=== PATIENT | female | born 1950 | race Caucasian/White ===

== ENCOUNTER 2017-10-28 14:03 | Emergency (ER) | payer OTHER ==
[~2017-10-28] VITALS: Ht 152.4 cm; Wt 86.0 kg
[~2017-10-28 14:03] MED LIST: ALEN1TAB48 PO; CALCCHW9 CHEW; DICL75TA PO; ESCI10TA PO; LISI20TA3 PO; MONT10TA4 PO; OMEP20TA93 PO; SIMV10TA PO; VERA120T3 PO
[2017-10-28 14:05] VITALS: BP 143/63; PULSE 81; RESP 14; TEMP 98.4; O2SAT 96
[2017-10-28] MEDS ORDERED: CALCTAB33 PO (14:18)
[2017-10-28] MEDS ORDERED: RANI300T PO (14:21)
--- NOTE | 2017-10-28 14:33 | PD ---
HPI Chief Complaint: Fall Time Seen by Provider: 14:29 Travel History International Travel<30 days: No Contact w/Intl Traveler<30days: No Traveled to known affect area: No History of Present Illness HPI 67-year-old female patient presents to the ER today because she tripped and fell onto both knees, and is currently complaining of bilateral knee pain, right rib pains, left elbow pain. She denies any head injury or loss of consciousness. She denies any other issues or injuries. She was able to get herself up and walk. Modifying Factors: None Associated Signs & Symptoms: Trip and fall, bilateral knee pain, right rib pains , left elbow pain Risk Factors: Elderly PFSH Past Medical History Anxiety: Yes Depression: Yes Cardiovascular Problems: Yes High Cholesterol: Yes Diminished Hearing: No GERD: Yes Hypertension: Yes Tetanus Vaccination: < 5 Years Influenza Vaccination: Yes ?: Not Menopausal: Yes Past Surgical History Tonsillectomy: Yes Social History Alcohol Use: No Tobacco Use: No Substance Use: No Allergies-Medications (Allergen,Severity, Reaction): Uncoded Allergies: dogs/cats (Allergy, Mild, Sneezing, 02/04/13) seasonal (Allergy, Mild, Sneezing, 02/04/13) Reported Meds & Prescriptions Reported Meds & Active Scripts Active Diclofenac Sodium DR (Diclofenac Sodium) 75 Mg Tabdr 75 Mg PO Q8HR PRN Reported Ranitidine (Ranitidine HCl) 300 Mg Tab 300 Mg PO BID Calcium 600+D Plus Minerals (Calcium Carbonate-Vitamin D W/Minerals) 600-400 Mg- Unit Tab 1 Tab PO BID Alendronate (Alendronate Sodium) 70 Mg Tab 70 Mg PO Q7D Escitalopram (Escitalopram Oxalate) 10 Mg Tab 10 Mg PO DAILY Montelukast (Montelukast Sodium) 10 Mg Tab 10 Mg PO HS Simvastatin 10 Mg Tab 10 Mg PO TID Verapamil (Verapamil HCl) 120 Mg Tab 120 Mg PO BID Lisinopril-Hctz 20-25 Mg Tab 1 Tab PO DAILY Review of Systems Except as stated in HPI: all other systems reviewed are Neg Physical Exam Narrative GENERAL: Well-developed elderly white female patient currently in mild distress. Awake and oriented 3. SKIN: Focused skin assessment warm/dry. HEAD: Atraumatic. Normocephalic. EYES: Pupils equal and round. No scleral icterus. No injection or drainage. ENT: No nasal bleeding or discharge. Mucous membranes pink and moist. NECK: Trachea midline. No JVD. Supple. CARDIOVASCULAR: Regular rate and rhythm. No murmur appreciated. RESPIRATORY: No accessory muscle use. Clear to auscultation. Breath sounds equal bilaterally. CHEST: Mild tenderness to palpation of the right lower lateral chest wall without deformity or crepitance. No retractions or use of accessory muscles. GASTROINTESTINAL: Abdomen soft, non-tender, nondistended. Hepatic and splenic margins not palpable. MUSCULOSKELETAL: No obvious deformities. No clubbing. No cyanosis. No edema. EXTREMITIES: No clubbing, cyanosis, or edema. No joint tenderness, effusion, or edema noted. Nontender range of motion and no significant point tenderness or bony tenderness on evaluation of the right knee, there is tenderness to palpation at the anterior left knee with notable crepitus but no obvious deformities. Left elbow is nontender to palpation, no point tenderness, no tenderness on ranging. NEUROLOGICAL: Awake and alert. No obvious cranial nerve deficits. Motor grossly within normal limits. Normal speech. PSYCHIATRIC: Appropriate mood and affect; insight and judgment normal. Data Data Last Documented VS Vital Signs Date Time Temp Pulse Resp B/P (MAP) Pulse Ox O2 Delivery O2 Flow Rate FiO2 10/28/17 14:22 Room Air 10/28/17 14:05 98.4 81 14 143/63 (89) 96 Orders Orders Knee, Complete (4vws) (10/28/17 14:29) Ribs, Uni (W/Exp Cxr-Min 3vw) (10/28/17 14:29) Ed Discharge Order (10/28/17 16:27) [facility] Medical Decision Making Medical Screen Exam Complete: Yes Emergency Medical Condition: Yes Medical Record Reviewed: Yes Interpretation(s) Last 24 hours Impressions Ribs X-Ray 10/28/171428 Signed Impressions: Service Date/Time: Saturday, October 28, 2017 15:35 - CONCLUSION: No evidence of fracture. Elfego Wiggins MD Knee X-Ray 10/28/171428 Signed Impressions: Service Date/Time: Saturday, October 28, 2017 15:32 - CONCLUSION: Osteoarthritic findings the lateral compartment predominance. Elfego Wiggins MD Differential Diagnosis Trip and fall, knee injuries, left elbow injury, rib pains: Fractures versus contusions versus strain Narrative Course X-ray did not show any signs of acute fractures or injuries. At this point, my plan would be to release her with follow-up to primary care physician. Return for any worsening in pain or new symptoms as needed. The plan has been discussed with her and she states understanding. Diagnosis Primary Impression: Other slipping, tripping and stumbling without falling, initial encounter Additional Impressions: Knee contusion Rib contusion Med/Other Pt SpecificInfo: Prescription(s) given Scripts Tramadol (Tramadol) 50 Mg Tab 50 MG PO Q8H Y for PAIN, #12 TAB 0 Refills Prov: Brittany Aguilar MD 10/28/17 Disposition: 01 DISCHARGE HOME Condition: Stable Brittany Aguilar MD Oct 28, 2017 14:33
--- NOTE | 2017-10-28 16:10 | RADRPT ---
EXAM DATE/TIME: 10/28/2017 15:32 [facility] COMPARISON: No previous studies available for comparison. INDICATIONS : Left lateral knee pain post fall. MEDICAL HISTORY : None. SURGICAL HISTORY : None. ENCOUNTER: Initial ACUITY: 1 day PAIN SCORE: 6/10 LOCATION: Left knee FINDINGS: 4 views left knee. Moderate-sized lateral compartment osteophytes. Small medial compartment osteophyt es and patellofemoral compartment osteophytes. Mild lateral compartment narrowing and subchondral scl erosis. No evidence of fracture. No evidence of joint effusion. CONCLUSION: Osteoarthritic findings the lateral compartment predominance. Elfego Wiggins MD on October 28, 2017 at 16:08 Board Certified Radiologist. This report was verified electronically.
--- NOTE | 2017-10-28 16:12 | RADRPT ---
EXAM DATE/TIME: 10/28/2017 15:35 [facility] COMPARISON: No previous studies available for comparison. INDICATIONS : Right ribs pain post fall MEDICAL HISTORY : None. SURGICAL HISTORY : None. ENCOUNTER: Initial ACUITY: 1 day PAIN SCORE: 9/10 LOCATION: Right chest FINDINGS: Multiple views of the right ribs were performed. There is no evidence of displaced fracture. No danielle tructive lesions or areas of periosteal thickening are seen. Expiratory view of the chest is negativ e for pneumothorax. The mediastinal structures are midline. Mitral annulus calcification noted. CONCLUSION: No evidence of fracture. Elfego Wiggins MD on October 28, 2017 at 16:09 Board Certified Radiologist. This report was verified electronically.
[2017-10-28] MEDS ORDERED: TRAM50TA PO (16:29)
== END 2017-10-28 16:40 | disposition home or self-care (01) ==
LOC: NEPD 14:03
DX: S80.02XA Contusion of left knee, initial encounter (principal); S80.01XA Contusion of right knee, initial encounter; S20.211A Contusion of right front wall of thorax, initial encounter; M25.522 Pain in left elbow; F41.9 Anxiety disorder, unspecified; E78.00 Pure hypercholesterolemia, unspecified; K21.9 Gastro-esophageal reflux disease without esophagitis; I10 Essential (primary) hypertension; W01.0XXA Fall on same level from slipping, tripping and stumbling without subsequent striking against object, initial encounter
CPT/HCPCS: 71101; 73564; 99284

== ENCOUNTER 2018-01-26 12:39 | Emergency (ER) | payer OTHER ==
[~2018-01-26] VITALS: Ht 152.4 cm; Wt 88.5 kg
[~2018-01-26 12:39] MED LIST changes: -CALCCHW9 CHEW; +CALCTAB33 PO; -OMEP20TA93 PO; +RANI300T PO; +TRAM50TA PO
[2018-01-26 13:05] VITALS: BP 128/59; PULSE 85; RESP 20; TEMP 99; O2SAT 98
--- NOTE | 2018-01-26 13:58 | RADRPT ---
EXAM DATE/TIME: 01/26/2018 13:45 [facility] COMPARISON: No previous studies available for comparison. INDICATIONS : Pain in left flank with shortness of breath after fall in yard. MEDICAL HISTORY : Asthma. SURGICAL HISTORY : None. ENCOUNTER: Initial ACUITY: 1 week PAIN SCORE: 4/10 LOCATION: Left chest and flank. FINDINGS: PA and lateral views of the chest demonstrate the lungs to be symmetrically aerated without evidence of mass, infiltrate or effusion. The cardiomediastinal contours are unremarkable. Calcifications ove rlying the heart system with either coronary artery or pericardial calcifications. Osseous structures are intact. CONCLUSION: No acute disease. Leighton Collazo Jr., MD on January 26, 2018 at 13:49 Board Certified Radiologist. This report was verified electronically.
[2018-01-26 16:35] VITALS: BP 150/72; PULSE 92; RESP 16; O2SAT 100
[2018-01-26] MEDS ORDERED: RESP: ALBUTEROL 2.5 MG/IPRATROPIUM 0.5 MG NEB (SCH) NEB ONE (17:00)
[2018-01-26] MEDS ORDERED: AZITHROMYCIN 250 MG TAB PO ONE (17:00)
[2018-01-26] MEDS ORDERED: predniSONE 20 MG TAB PO ONE (17:00)
--- NOTE | 2018-01-26 17:09 | PD ---
HPI Chief Complaint: Cold / Flu Symptoms Time Seen by Provider: 16:35 Travel History International Travel<30 days: No Contact w/Intl Traveler<30days: No Traveled to known affect area: No History of Present Illness HPI 67-year-old female presents emergency department with cough, and left lateral thoracic pain. Patient states she fell last Monday, while walking her dog, and injured her left lateral chest wall. She states that seemed to improve until 2 days ago when she developed an upper respiratory type infection which is settled in her chest. She states now her pain in the chest is worse with cough and movement. Patient states she did have fever a couple days ago, but not in the last 24 hours. Patient denies headache, sore throat although she did have one 2 days ago. She denies ear pain. She denies wheezing or shortness of breath. She states she always gets bronchitis with a cold, and has needed prednisone and albuterol in the past. Patient is a non-smoker. No history of COPD. No nausea or vomiting noted. Patient is allergic to cats dogs and seasonal allergies. PFSH Past Medical History Anxiety: Yes Depression: Yes Cardiovascular Problems: Yes High Cholesterol: Yes Diminished Hearing: No GERD: Yes Hypertension: Yes Immunizations Current: Yes ?: Not Menopausal: Yes Past Surgical History Tonsillectomy: Yes Social History Alcohol Use: No Tobacco Use: No Substance Use: No Allergies-Medications (Allergen,Severity, Reaction): Uncoded Allergies: dogs/cats (Allergy, Mild, Sneezing, 02/04/13) seasonal (Allergy, Mild, Sneezing, 02/04/13) Reported Meds & Prescriptions Reported Meds & Active Scripts Active Tramadol (Tramadol HCl) 50 Mg Tab 50 Mg PO Q8H PRN Diclofenac Sodium DR (Diclofenac Sodium) 75 Mg Tabdr 75 Mg PO Q8HR PRN Reported Ranitidine (Ranitidine HCl) 300 Mg Tab 300 Mg PO BID Calcium 600+D Plus Minerals (Calcium Carbonate-Vitamin D W/Minerals) 600-400 Mg- Unit Tab 1 Tab PO BID Alendronate (Alendronate Sodium) 70 Mg Tab 70 Mg PO Q7D Escitalopram (Escitalopram Oxalate) 10 Mg Tab 10 Mg PO DAILY Montelukast (Montelukast Sodium) 10 Mg Tab 10 Mg PO HS Simvastatin 10 Mg Tab 10 Mg PO TID Verapamil (Verapamil HCl) 120 Mg Tab 120 Mg PO BID Lisinopril-Hctz 20-25 Mg Tab 1 Tab PO DAILY Review of Systems Except as stated in HPI: all other systems reviewed are Neg General / Constitutional: Positive: Fever (2 days ago ), No: Chills Eyes: No: Visual changes HENT: Positive: Sore Throat (2 days ago), Rhinitis, Rhinorrhea, Congestion, No : Headaches, Vertigo, Lightheadedness, Nosebleed, Neck Stiffness, Neck Pain, Dental Difficulties, Ear Discharge, Earache Cardiovascular: No: Chest Pain or Discomfort Respiratory: Positive: Cough, Shortness of Breath, Wheezing, Pleuritic Pain ( See history of present), No: Sneezing, Orthopnea Gastrointestinal: No: Nausea, Vomiting, Diarrhea, Abdominal Pain Genitourinary: No: Dysuria Musculoskeletal: No: Pain Skin: No Rash Neurologic: No: Weakness Psychiatric: No: Depression Endocrine: No: Polydipsia Hematologic/Lymphatic: No: Easy Bruising Physical Exam Narrative GENERAL: Patient appears in mild distress. She has a hacking cough. She is able to speak in full sentences however SKIN: Warm and dry. Normal color. Normal turgor. No rash. HEAD: Atraumatic. Normocephalic. EYES: Pupils equal and round. No scleral icterus. No injection or drainage. ENT: No nasal bleeding or discharge. Mucous membranes pink and moist. TMs are normal bilaterally. No sinus tenderness. Posterior pharynx is unremarkable. Airways patent. No significant lymphadenopathy. NECK: Trachea midline. Supple and nontender without lymphadenopathy. CARDIOVASCULAR: Regular rate and rhythm. RESPIRATORY: No accessory muscle use. Coarse breath sounds throughout to auscultation. Breath sounds equal bilaterally. Patient has generalized tenderness along the left lower lateral thoracic wall without point tenderness or crepitus. No subcu subcutaneous air is noted. GASTROINTESTINAL: Abdomen soft, non-tender, nondistended. Hepatic and splenic margins not palpable. MUSCULOSKELETAL: Extremities without clubbing, cyanosis, or edema. No obvious deformities. Patient has some tenderness to both anterior knees status post fall. NEUROLOGICAL: Awake and alert. No obvious cranial nerve deficits. Motor grossly within normal limits. Five out of 5 muscle strength in the arms and legs. Normal speech. PSYCHIATRIC: Appropriate mood and affect; insight and judgment normal. Data Data Last Documented VS Vital Signs Date Time Temp Pulse Resp B/P (MAP) Pulse Ox O2 Delivery O2 Flow Rate FiO2 01/26/18 16:35 100 Room Air 01/26/18 16:35 92 16 150/72 (98) 01/26/18 13:05 99.0 Orders Orders Chest, Pa & Lat (01/26/18 13:21) Prednisone (Deltasone) (01/26/18 17:00) Azithromycin (Zithromax) (01/26/18 17:00) Albuterol-Ipratropium Neb (Duoneb Neb) (01/26/18 17:00) MDM Medical Decision Making Medical Screen Exam Complete: Yes Emergency Medical Condition: Yes Differential Diagnosis Pneumonia. Bronchitis. Wheezing. Rib pain. Possible rib fracture. Narrative Course Patient appears medically stable at time of exam. Chest x-ray shows no pneumonia. Patient is given DuoNeb. Patient is given azithromycin 500 mg p.o. Patient is given 40 mg prednisone p.o. Patient is continued on azithromycin 500 mg p.o. Daily #3 Patient continued on prednisone 20 mg daily for 7 days. Patient is given albuterol metered-dose inhaler 2 puffs every 4-6 hours as needed cough. Patient is given tramadol 50 mg 1 every 6 hours as needed #20. Diagnosis Primary Impression: Acute wheezy bronchitis Additional Impression: Rib pain on left side Referrals: Primary Care Physician Patient Instructions: Acute Bronchitis (ED), Albuterol (By breathing), General Instructions, Prednisolone (By mouth) Additional Instructions: Patient is continued on azithromycin 500 mg p.o. Daily #3 Patient continued on prednisone 20 mg daily for 7 days. Patient is given albuterol metered-dose inhaler 2 puffs every 4-6 hours as needed cough. Patient is given tramadol 50 mg 1 every 6 hours as needed #20. Med/Other Pt SpecificInfo: Prescription(s) given Disposition: 01 DISCHARGE HOME Condition: Stable Gokul Arriaga Jan 26, 2018 17:09
[2018-01-26] MEDS ORDERED: TRAM50TA PO (17:11)
[2018-01-26] MEDS ORDERED: AZIT500T2 PO ×2 (17:11→17:18)
[2018-01-26] MEDS ORDERED: VENTAER INH ×2 (17:11→17:18)
[2018-01-26] MEDS ORDERED: PRED20 PO ×2 (17:11→17:18)
== END 2018-01-26 17:58 | disposition home or self-care (01) ==
LOC: NEPD 12:39
DX: J20.9 Acute bronchitis, unspecified (principal); R07.81 Pleurodynia; W19.XXXA Unspecified fall, initial encounter; Y93.K1 Activity, walking an animal; I10 Essential (primary) hypertension; F41.9 Anxiety disorder, unspecified; F32.9 Major depressive disorder, single episode, unspecified; E78.00 Pure hypercholesterolemia, unspecified; K21.9 Gastro-esophageal reflux disease without esophagitis
CPT/HCPCS: 71046; 94664; 99283; J7512